=== PATIENT | male | born 1995 | race Caucasian/White ===

== ENCOUNTER 2017-09-15 05:03 | Emergency (ER) | payer SELFPAY ==
[~2017-09-15] VITALS: Ht 188 cm; Wt 90.0 kg
[2017-09-15 05:05] VITALS: BP 138/82; PULSE 81; RESP 16; TEMP 98.1; O2SAT 98
--- NOTE | 2017-09-15 05:29 | PD ---
HPI Chief Complaint: Medical Clearance Time Seen by Provider: 05:23 Travel History International Travel<30 days: No Contact w/Intl Traveler<30days: No Traveled to known affect area: No History of Present Illness HPI 21-year-old man, hearing impaired, presents emergency Department one episode of vomiting. 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 Patient was apparently recently discharged from [facility] where he was under a [place] act previously. Patient denies any complaints now. He does keep going on about his previous [place] act and his parents and a legal situation. He apparently is going to a new long-term housing in [place]. One episode of vomiting tonight he feels like a bug was crawling in his mouth. No other complaints now. History Past Medical History Medical History: Denies Significant Hx Social History Alcohol Use: Yes Tobacco Use: No Allergies-Medications (Allergen,Severity, Reaction): Coded Allergies: No Known Allergies (Unverified , 09/15/17) Review of Systems ROS Limitations: Hearing Impaired Physical Exam Narrative GENERAL: Well-appearing 21-year-old man, no acute distress. SKIN: Focused skin assessment warm/dry. HEAD: Atraumatic. Normocephalic. EYES: Pupils equal and round. No scleral icterus. No injection or drainage. ENT: No nasal bleeding or discharge. Mucous membranes pink and moist. There is no bugs in his mouth. There is no rashes or lesions or other abnormality. NECK: Trachea midline. No JVD. CARDIOVASCULAR: Regular rate and rhythm. No murmur appreciated. RESPIRATORY: No accessory muscle use. Clear to auscultation. Breath sounds equal bilaterally. GASTROINTESTINAL: Abdomen soft, non-tender, nondistended. Hepatic and splenic margins not palpable. MUSCULOSKELETAL: No obvious deformities. Data Data Last Documented VS Vital Signs Date Time Temp Pulse Resp B/P (MAP) Pulse Ox O2 Delivery O2 Flow Rate FiO2 09/15/17 05:10 16 09/15/17 05:05 98.1 81 138/82 (100) 98 Orders Orders Ondansetron Odt (Zofran Odt) (09/15/17 05:30) [facility] Medical Decision Making Medical Screen Exam Complete: Yes Emergency Medical Condition: Yes Differential Diagnosis Vomiting, abdominal pain, stomach illness, other Narrative Course Medical decision-making 21-year-old man presents emergent problem with vomiting complaining that he felt like a bug or warm and dry in his throat. His exam is normal. Recommend outpatient follow-up. Diagnosis Primary Impression: Vomiting Additional Instructions: Follow-up with your primary doctor as needed. Return to the emergency department for any new or worsening symptoms. Med/Other Pt SpecificInfo: No Change to Meds Disposition: 01 DISCHARGE HOME Condition: Stable Sebastian Marquez MD Sep 15, 2017 05:29
[2017-09-15] MEDS ORDERED: ONDANSETRON ODT 4 MG TAB PO ONE (05:30)
== END 2017-09-15 06:07 | disposition home or self-care (01) ==
LOC: NEPE 05:03
DX: R11.10 Vomiting, unspecified (principal)
CPT/HCPCS: 99283